=== PATIENT | male | born 1995 | race Caucasian/White ===

== ENCOUNTER 2018-05-28 10:01 | Day surgery (SDC) | payer BC ==
[~2018-05-28 10:01] MED LIST: Buffered Lidocaine 1% SYRIN* 1 ML/SYRINGE INTRADERM ONE; Famotidine IV* 10 MG/ML 2 ML (20 mg) IV ONE; Lactated Ringers 1000 ML Bag* 1,000 ML IV SCH
[2018-05-28] MEDS ORDERED: Famotidine IV* 10 MG/ML 2 ML (20 mg) ONE (10:13)
[2018-05-28] MEDS ORDERED: Propofol* 10 MG/ML 20 ML BTL ONE (10:28)
[2018-05-28] MEDS ORDERED: Ketorolac INJ* 30 MG/ML 1 ML VIAL ONE (10:28)
[2018-05-28] MEDS ORDERED: Lidocaine 2% PF * 5 ML VIAL ONE (10:28)
[2018-05-28] MEDS ORDERED: Ondansetron INJ* 2 MG/ML VIAL ONE (10:28)
[2018-05-28] MEDS ORDERED: Dexamethasone IV* 4 MG/ML 1 ML (4 MG) ONE (10:28)
[2018-05-28] MEDS ORDERED: fentaNYL* 50 MCG/ML 2 ML VIAL (100 MCG VIAL) ONE (10:28)
[2018-05-28] MEDS ORDERED: Midazolam* 1 MG/ML 5 ML VIAL (5 MG) ONE (10:28)
[2018-05-28] MEDS ORDERED: Lidocaine 2% EPI 1:200000 MPF*10-20 ML VIAL ONE (10:55)
[2018-05-28] MEDS ORDERED: Oxymetazoline 0.05% NASAL SPR* 15 ML BTL ONE (10:55)
[2018-05-28] MEDS ORDERED: Naloxone* 0.4 MG/ML 1 ML VIAL IV PRN (10:59)
[2018-05-28] MEDS ORDERED: oxyCODONE/Acetamin 5/325 MG* TAB PO PRN (10:59)
[2018-05-28] MEDS ORDERED: Ondansetron INJ* 2 MG/ML VIAL IV PRN (10:59)
[2018-05-28] MEDS ORDERED: fentaNYL* 50 MCG/ML 2 ML VIAL (100 MCG VIAL) IV PRN (10:59)
--- NOTE | 2018-05-28 13:23 | OP ---
OPERATIVE REPORT: DATE OF OPERATION: 05/28/18 DATE OF : [birth year] SURGEON: J Luis Peraza MD PRE-OP DIAGNOSES: Deviated nasal septum and hypertrophied turbinates. POST-OP DIAGNOSES: Deviated nasal septum and hypertrophied turbinates. OPERATIVE PROCEDURE: Septoplasty and submucosal resection of the inferior turbinates. BRIEF HISTORY: This pleasant 22-year-old gentleman with a history of nasal dyspnea, deviated nasal s eptum, failing medical management. DESCRIPTION OF PROCEDURE: The patient was taken to the operating room, general anesthesia was given, the patient was intubated. Nose was decongested with Afrin placed pledgets. 2% lidocaine with epin ephrine was then infiltrated in the mucosa of the septum on both sides and the inferior turbinates on both sides. Left hemitransfixion incision was created, mucoperichondrial flap was elevated. Quadran gular cartilage was then disarticulated along the vomer-ethmoidal complex posteriorly and along the m axillary crest inferiorly. Large portion of the crest was noted to be quite deviated into the nasal vestibule, specifically in the region of the nasal valve. Careful resection was carried out at the b mirian maxillary crest. The quadrangular cartilage was then scored on its concave surface. Portion of the vomer-ethmoidal co mplex was removed. This allowed swinging of the quadrangular cartilage, which was placed in the midl ine and secured with multiple mattress sutures of chromic. The hemitransfixion incision was created in a single layer. Mary splints were then applied and secured with 2-0 silk. We turned our attention to the inferior turbinates. A small incision was made in the inferior turbin ate mucosa. Submucosal elevation was carried out on both sides. Portion of the inferior turbinate kathleen ne and mucosa was removed. Cauterization was carried out with hemostasis. The patient was then awoken and sent to the recovery room in stable condition. Instrument and sponge counts were correct. Blood loss minimal. [id number] #: [id number]
[2018-05-28 13:55] VITALS: BP 131/86
== END 2018-05-28 14:04 | disposition home or self-care (01) ==
LOC: OR 10:01
PROVIDERS: ATTEND Otolaryngology
DX: J34.2 Deviated nasal septum (principal); J34.3 Hypertrophy of nasal turbinates; J45.909 Unspecified asthma, uncomplicated
CPT/HCPCS: A9270-GY; J1100; J1885; J2250; J2405; J2704; J3010